=== PATIENT | male | born 1995 | race Two or more races ===

== ENCOUNTER 2019-09-15 07:41 | Emergency (ER) | payer OTHER ==
[~2019-09-15] VITALS: Ht 177.8 cm; Wt 84.0 kg
--- NOTE | 2019-09-15 08:53 | NUR ---
MELITON ANSARI AT BEDSIDE FOR ASSESSMENT.
--- NOTE | 2019-09-15 09:10 | NUR ---
PT RESTING IN BED, DENIES ANY CP, STATES "HE IS FEELING A LOT BETTER." PT STATES SUDDEN ONSET OF HEART PALPITATIONS LAST NIGHT AFTER DRINKING A MODERATE AMOUNT OF ETOH. PT PLACED ON MONITORS, EKG DONE IN TRIAGE. AWAITING LAB RESULTS. CALL LIGHT IN REACH CONT TO MONITOR.
[2019-09-15 09:18] LABS: BASOPHILS # (AUTO) 0.03 x10^3/uL (0-0.1); BASOPHILS % (AUTO) 1 % (0-1); EOSINOPHILS # (AUTO) 0.15 x10^3/uL (0-0.4); EOSINOPHILS % (AUTO) 3 % (1-7); LYMPHOCYTES # (AUTO) 2.25 x10^3/uL (1-3.4); LYMPHOCYTES % (AUTO) 44 % (22-44); MD NO; MEAN CORPUSCULAR HEMOGLOBIN 30.4 pg (27.5-34.5); MEAN CORPUSCULAR HGB CONC 34.1 g/dL (33.2-36.2); MEAN CORPUSCULAR VOLUME 89.1 fL (81-97); MEAN PLATELET VOLUME 9.3 fL (7.4-10.4); MONOCYTES # (AUTO) 0.36 x10^3/uL (0.2-0.8); MONOCYTES % (AUTO) 7 % (2-9); NEUTROPHILS # (AUTO) 2.37 x10^3/uL (1.8-6.8); NEUTROPHILS % (AUTO) 46 % (42-75); PLATELET COUNT 167 x10^3/uL (130-400); RED CELL DISTRIBUTION WIDTH 12.2 % (9.4-14.8)
[2019-09-15 09:33] LABS: CALCIUM 8.4 mg/dL (8.5-10.1); CHLORIDE 109 mmol/L (98-107)
[2019-09-15 09:49] LABS: ALBUMIN 4.1 g/dL (3.4-5.0); ANION GAP 10 mmol/L (5-15); CREATININE 0.89 mg/dL (0.7-1.3); T4 (THYROXINE) 7.4 mcg/dL (4.5-12.1)
[2019-09-15 10:42] VITALS: BP 145/78
--- NOTE | 2019-09-15 10:42 | NUR ---
PT OK FOR D/C. PT HAS STEADY UPON D/C, VERBALIZED UNDERSTANDING OF ALL D/C INSTRUCTIONS.
== END 2019-09-15 10:44 | disposition home or self-care (01) ==
LOC: ED 09:32
DX: R00.0 Tachycardia, unspecified (principal); R94.31 Abnormal electrocardiogram [ECG] [EKG]
CPT/HCPCS: 36415; 80048; 82040; 84436; 84443; 85025; 93005; 99284